=== PATIENT | female | born 1975 | race Hispanic/Latino ===

== ENCOUNTER 2018-08-20 17:10 | Emergency (ER) | payer OTHER ==
[~2018-08-20] VITALS: Ht 157.5 cm; Wt 72.9 kg
[~2018-08-20 17:10] MED LIST: DEPO-PROVER150 MG/ML IM; IBUPROFEN800 MG PO; KEFLEX500 MG PO; NORCO 5-325 TA1 EACH PO; PREVACID30 M1 PO; ULTRAM50 MG PO
--- OUTSIDE RECORDS SUMMARY | 2018-08-20 17:16 | XMS ---
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 Events No recent Security Events currently on file CRITERIA MET - 6 ED Visits in 6 Months - [facility] - 2 Visits in 30 Days CARE PROVIDERS BENIGNO NAJERA Nurse Practitioner: 03/13/2018-Current PHONE: Unknown Alexa Williamson Community Health Worker 08/06/2018-Current Ashish Aranda PHONE: [phone] ROSEMARIE BLISS Primary Care Current PHONE: Unknown BENIGNO NAJERA Primary Care Current PHONE: Unknown LEGACY PATIENT Primary Care [facility] [employer] PHONE: Unknown Alexa Case or Packaging Sales Representative Current MARIO Murray PHONE: [phone] Tony has no Care Guidelines for this patient. Sylvain VISIT COUNT (12 MO.) [address] [place] [address] [facility] TOTAL 14 NOTE: Visits indicate total known visits. ED/UCC VISIT TRACKING (12 MO.) 08/20/2018 17:12 [facility] [place] TYPE: Emergency COMPLAINT: - L ARM PAIN,CHEST PAIN 08/09/2018 20:33 [place] [facility] DIAGNOSES: - SI intoxicated - Major depressive disorder, single episode, unspecified - Alcohol dependence, uncomplicated 08/05/2018 22:01 [facility] [place] TYPE: Emergency DIAGNOSES: - Alcohol use, unspecified with intoxication, unspecified - SI intoxication 08/05/2018 14:43 [facility] [place] TYPE: Emergency DIAGNOSES: - Major depressive disorder, single episode, unspecified - SUICIDAL - Alcohol dependence, uncomplicated 08/04/2018 14:57 [facility] [place] TYPE: Emergency DIAGNOSES: - Alcohol use, unspecified with intoxication, uncomplicated - SUICIDAL - Suicidal ideations 06/23/2018 12:15 [facility] [place] TYPE: Emergency DIAGNOSES: - WEAKNESS - Alcohol dependence with intoxication delirium 04/15/2018 13:04 [place] [facility] [facility] [place] TYPE: Emergency COMPLAINT: - ALCOHOL INTOXICATION/SI 03/24/2018 17:39 [facility] [place] TYPE: Emergency COMPLAINT: - ALCOHOL INTOX. 03/12/2018 19:32 [facility] [place] TYPE: Emergency COMPLAINT: - MEDICAL CLEARANCE DIAGNOSES: - Suicidal ideations - Alcohol abuse with intoxication, unspecified - Urinary tract infection, site not specified - Precordial pain - Nicotine dependence, unspecified, uncomplicated - Blood alcohol level of 240 mg/100 ml or more - Other chest pain - Allergy status to penicillin 03/11/2018 12:21 [facility] [place] TYPE: Emergency COMPLAINT: - MENTAL HEALTH 03/07/2018 21:26 [facility] [place] TYPE: Emergency COMPLAINT: - ABD PAIN 02/09/2018 16:02 [facility] OR TYPE: Emergency COMPLAINT: - MEDICAL CLEARANCE DIAGNOSES: - Suicidal ideations - Alcohol dependence with intoxication, unspecified 12/18/2017 09:08 [facility] OR TYPE: Emergency COMPLAINT: - PAIN BETWEEN BREAST SORE THROAT DIAGNOSES: - Other stimulant abuse, uncomplicated - Gastro-esophageal reflux disease without esophagitis 12/04/2017 00:43 [facility] [place] TYPE: Emergency COMPLAINT: - UPPER ABD PAIN DIAGNOSES: - Epigastric pain INPATIENT VISIT TRACKING (12 MO.) No inpatient visits to display in this time frame [id number]
--- NOTE | 2018-08-21 22:05 | EKG ---
[facility] [address] [place], [place] [address] Signed Normal sinus rhythm Normal ECG When compared with ECG of 02-JUN-2018 09:16, No significant change was found Confirmed by GAY SCHULTZ DO ([id number]) on 08/21/2018 10:05:34 PM Electronically Signed By: GAY SCHULTZ DO 08/21/18 [id number] PATIENT NAME: HOYOSJERSON Electrocardiogram DATE OF : 71 PHYSICIAN: GAY SCHULTZ DO REPORT #: [id number] REPORT IS CONFIDENTIAL AND NOT TO BE RELEASED WITHOUT AUTHORIZATION
== END 2018-08-20 18:55 | disposition home or self-care (01) ==
LOC: ED 17:10
DX: R07.89 Other chest pain (principal); F41.9 Anxiety disorder, unspecified; F32.9 Major depressive disorder, single episode, unspecified; F43.10 Post-traumatic stress disorder, unspecified; Z90.49 Acquired absence of other specified parts of digestive tract; Z88.0 Allergy status to penicillin; Z79.899 Other long term (current) drug therapy
CPT/HCPCS: 93005; 93010; 99283-25